=== PATIENT | female | born 1990 | race Caucasian/White ===

== ENCOUNTER 2021-01-19 13:07 | Emergency (ER) | payer BC, SELFPAY ==
[2021-01-19 13:20] VITALS: BP 107/70; PULSE 81; RESP 18; TEMP 37.1; O2SAT 95; BMI 29.9
--- NOTE | 2021-01-19 17:52 | XRR_ITS ---
PROCEDURE INFORMATION: Exam: XR Chest Exam date and time: 01/19/2021 5:52 PM Age: 30 years old Clinical indication: Shortness of breath; Additional info: SOB TECHNIQUE: Imaging protocol: XR of the chest. Views: 2 views. COMPARISON: No relevant prior studies available. FINDINGS: Lungs: The lateral aspect of the right chest wall is partially excluded from the field of view on the frontal radiograph. The lungs are clear. Pleural spaces: Unremarkable. No pleural effusion. No pneumothorax. Heart/Mediastinum: Unremarkable. No cardiomegaly. Bones/joints: Unremarkable. XR/XR chest 2V* [id number] IMPRESSION: No acute cardiopulmonary abnormality.
[2021-01-19 18:00] VITALS: BP 101/70; PULSE 64; RESP 18; O2SAT 100
[2021-01-19 18:30] LABS: Basophils % 0.5 %; Eosinophils # 0.1 10^3/uL (0.0-0.8); Eosinophils % 2.1 %; Hematocrit 40.9 % (37.0-47.0); Hemoglobin 13.2 g/dL (11.5-15.3); Lymphocytes # 1.9 10^3/uL (0.8-4.8); Lymphocytes % 31.1 %; Mean Corpuscular HGB Conc 32.3 g/dL (30.0-36.0); Mean Corpuscular Hemoglobin 28.4 pg (28.0-34.0); Mean Platelet Volume 11.8 fL (7.4-10.4); Monocytes # 0.3 10^3/uL (0.2-0.9); Monocytes % 4.6 %; Neutrophils # 3.72 10^3/uL (1.8-7.7); Neutrophils % 61.4 %; Nucleated Red Blood Cells % 0 %; Platelet Count 213 10^3/cmm (130-400); Red Blood Count 4.65 10^6/uL (4.1-5.3); Red Cell Distribution Width 13.1 % (12.1-15.1); White Blood Count 6.1 10^3/uL (4.0-10.0)
--- NOTE | 2021-01-19 18:38 | W.ED.SOB ---
HPI - SOB/Dyspnea General: Chief Complaint: Shortness of Breath/Dyspnea Stated Complaint: sob, chest tightness, tested Covid (-) last wk/KHLOE Time Seen by Provider: 01/19/21 13:23 Source: patient Mode of arrival: ambulatory Limitations: no limitations History of Present Illness: HPI Narrative: Exposure to Covid positive individual in the last 2 weeks describes pleuritic chest pain reproducible upon touch and deep breath/movement. Screened 1 week ago for Covid in [place] with a rapid antigen. Complains of dry cough unimproved with [id number] medication use MD elicited complaint: shortness of breath and cough Onset (ago): week(s) Context: recent illness Timing: progressively worsening Severity: mild Exacerbating factors: movement, coughing and inspiration Relieving factors: rest Associated symptoms: Deny chest congestion Related Data: Home oxygen amount: none Review of Systems General: Reports: 10 or more systems reviewed and unremarkable except in HPI and below Resp: Reports: dyspnea, non-productive cough and pain on inspiration; Denies: wheezing, stridor, change in phlegm color or chest congestion GI: Reports: diarrhea [facility] ED Female Reproductive History: Date of last menstrual period: 12/20/20 Physical Exam Const: COMMON NORMALS: no acute distress, average body habitus and patient oriented x3 HENMT: COMMON NORMALS: normocephalic, atraumatic and Normal external nose present HEAD & SCALP: normocephalic and atraumatic FACE & SINUS: normal facial exam NOSE: Normal external nose present Eye: COMMON NORMALS: Equal, round and reactive pupils present and EOMs intact bilaterally PUPIL: Yes Equal, round and reactive pupils present Neck/C-Spine: COMMON NORMALS: no JVD Lymph: LYMPHATIC: no lymphadenopathy noted Chest: COMMONS NORMALS: normal inspection of the chest CHEST: Yes localized rib tenderness with anteroposterior compression Resp: COMMON NORMALS: normal respiratory effort, No retractions, No use of accessory muscles, clear to auscultation bilaterally and percussion normal AUSCULTATION: clear to auscultation bilaterally PERCUSSION: percussion normal Cardio: COMMON NORMALS: no JVD, regular rate, regular rhythm, S1 normal heart sound present and S2 normal heart sound present RATE: regular rate RHYTHM: regular rhythm HEART SOUNDS: S1 normal heart sound present and S2 normal heart sound present GI: COMMON NORMALS: Normal to inspection, nondistended, normoactive bowel sounds present, Soft to palpation and non-tender PALPATION: Yes Soft to palpation Neuro: COMMON NORMALS: patient oriented x3 Skin: COMMON NORMALS: no rashes or lesions noted GENERAL SKIN EXAM: no rashes or lesions noted Course Reevaluation(s): Reevaluation #1: Covid - at this time. CXR unremarkable. Following toradol administration SOB/CP has resolved. Patient overall feels well. Vital Signs: Vital signs: Vital Signs Temperature 98.7 F 01/19/21 13:20 Pulse Rate 68 01/19/21 19:00 Respiratory Rate 18 01/19/21 19:00 Blood Pressure 102/67 01/19/21 19:00 Pulse Oximetry 99 01/19/21 19:00 MDM - SOB/Dyspnea Lab Data: Attestation: I reviewed the patient's lab results. Labs: Lab Results 01/19/21 01/19/21 Range/Units 18:23 18:23 WBC 6.1 (4.0-10.0) 10^3/ uL RBC 4.65 (4.1-5.3) 10^6/u L Hgb 13.2 (11.5-15.3) g/dL Hct 40.9 (37.0-47.0) % MCV 88.0 (81-99) fL MCH 28.4 (28.0-34.0) pg MCHC 32.3 (30.0-36.0) g/dL RDW 13.1 (12.1-15.1) % Plt Count 213 (130-400) 10^3/c mm MPV 11.8 H (7.4-10.4) fL Neut % (Auto) 61.4 % Lymph % (Auto) 31.1 % [place] % (Auto) 4.6 % Eos % (Auto) 2.1 % Baso % (Auto) 0.5 % Neut # (Auto) 3.72 (1.8-7.7) 10^3/u L Lymph # (Auto) 1.9 (0.8-4.8) 10^3/u L [place] # (Auto) 0.3 (0.2-0.9) 10^3/u L Eos # (Auto) 0.1 (0.0-0.8) 10^3/u L Baso # (Auto) 0.0 (0.0-0.1) 10^3/u L Nucleated RBC % (a uto) 0 % Nucleated RBCs # 0.0 /100WBC SARS-CoV-2 Ag (Rap id) Negative (Negative) Imaging Data^: CXR: Attestation: I personally reviewed and interpreted this imaging study as follows: Radiologist's impression: IMPRESSION: No acute cardiopulmonary abnormality. Discharge Plan Discharge Patient Disposition: Home Clinical Impression: Acute costochondritis Condition: Stable Prescriptions: New naproxen [EC-Naproxen] 500 mg tablet,delayed release (DR/EC) 500 mg PO BID PRN (Reason: pain) Qty: 14 RF: 0 Discharge Orders: Discharge ED (Routine); Ordered 01/19/21 Ordered By: Rayna Fung Discharge Diet: Usual diet Discharge Activity: Resume usual activity Patient Instructions: Opioid Safety Activity Restrictions/Additional Instructions: Follow up with PCP in 1 week. 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
[2021-01-19 19:00] VITALS: BP 102/67; PULSE 68; RESP 18; O2SAT 99
[2021-01-19] MEDS: ketorolac 60 mg/2 mL INJ IM (19:12)
[2021-01-19 19:42] LABS: SARS Covid-2 Antigen Negative (Negative)
[2021-01-19 20:45] VITALS: BP 102/70; PULSE 74; RESP 22; O2SAT 95
[2021-01-19 20:46] VITALS: BP 103/72; PULSE 66; RESP 16; TEMP 36.8; O2SAT 99
== END 2021-01-19 20:40 | disposition home or self-care (01) ==
PROVIDERS: Emergency Provider Nurse Practitioner Family
DX: M94.0 Chondrocostal junction syndrome [Tietze] (principal); Z20.822 Contact with and (suspected) exposure to COVID-19
CPT/HCPCS: 71046; 85025; 87426; 96372; 99283; J1885